=== PATIENT | female | born 1975 ===

== ENCOUNTER 2021-08-19 08:54 | Emergency (ER) | payer SELFPAY ==
--- NOTE | 2021-08-19 11:18 | Emergency Department Report ---
HPI - General Chief Complaint: Hypoglycemia Time Seen by Provider: 08/19/21 11:03 - HPI HPI: Room 25 Patient is a 46-year-old female present with a chief complaint of hyperglycemia. Patient has a history of diabetes and only takes insulin. Patient states she took her insulin this morning at 05: 3 0 but has not eaten anything since last night. EMS was called for the patient complaining of weakness and dizziness. Upon arrival EMS found the patient be hypoglycemic at 26 the patient was given D10 and oral glucose with improvement of the patient's D stick to 164. The patient states she is amnestic to the event but currently denies complaints. ED Past Medical Hx - Past Medical History Hx Diabetes: Yes - Surgical History Past Surgical History?: No - Family History Family history: no significant - Social History Smoking Status: Never Smoker Substance Use Type: None ED Review of Systems ROS: Stated complaint: HYPOGLYCEMIA Other details as noted in HPI Constitutional: no symptoms reported Eyes: denies: eye pain ENT: denies: throat pain Respiratory: no symptoms reported Cardiovascular: denies: chest pain Endocrine: no symptoms reported Gastrointestinal: denies: abdominal pain Genitourinary: denies: dysuria Musculoskeletal: denies: back pain Neurological: denies: headache Physical Exam - Physical Exam Vital Signs: Vital Signs 08/19/21 08/19/21 08/19/21 11:41 11:47 13:20 Temperature 98.6 F 97.5 F L Pulse Rate 77 79 Respiratory 17 17 Rate Blood Pressure 121/65 [Left] O2 Sat by Pulse 98 96 99 Oximetry Physical Exam: GENERAL: The patient is well-developed well-nourished female lying on stretcher not appearing to be in acute distress. [] HEENT: Normocephalic. Atraumatic. Extraocular motions are intact. Patient has moist mucous membranes. NECK: Supple. Trachea midline CHEST/LUNGS: Clear to auscultation. There is no respiratory distress noted. HEART/CARDIOVASCULAR: Regular. There is no tachycardia. There is no gallop rub or murmur. ABDOMEN: Abdomen is soft, nontender. Patient has normal bowel sounds. There is no abdominal distention. SKIN: There is no rash. There is no edema. There is no diaphoresis. NEURO: The patient is awake, alert, and oriented. The patient is cooperative. The patient has no focal neurologic deficits. The patient has normal speech. GCS 15 MUSCULOSKELETAL: There is no evidence of acute injury. ED Medical Decision Making - Differential Diagnosis Hypoglycemia Critical care attestation.: If time is entered above; I have spent that time in minutes in the direct care of this critically ill patient, excluding procedure time. ED Disposition Clinical Impression: Hypoglycemia Disposition: 01 HOME / SELF CARE / HOMELESS Is pt being admited?: No Does the pt Need Aspirin: No Condition: Stable Instructions: Preventing Hypoglycemia Additional Instructions: Return to the emergency department should you develop worsening symptoms, inability to tolerate food or liquids, high fever or any other concerns Referrals: PRIMARY CARE, [Primary Care Provider] - 3-5 Days Time of Disposition: 13:28
[2021-08-19 13:25] VITALS: BP 121/65
== END 2021-08-19 13:48 | disposition home or self-care (01) ==
LOC: ED 08:54
DX: E11.649 Type 2 diabetes mellitus with hypoglycemia without coma (principal)
CPT/HCPCS: 82962; 99283